=== PATIENT | male | born 1975 | race Caucasian/White ===

== ENCOUNTER 2024-02-27 11:17 | Inpatient (IN) | payer BC ==
[~2024-02-27] VITALS: Ht 180.3 cm; Wt 95.3 kg
[2024-02-27] VITALS (11 sets, daily range): BP systolic 90–126; BP diastolic 58–85
[2024-02-27] MEDS ORDERED: SODIUM CHLORIDE 0.9% 1,000 ML IV ONE ×4 (11:25→12:30)
[2024-02-27] MEDS ORDERED: DIAZEPAM 5 MG TAB PO ONE (11:25)
[2024-02-27] MEDS ORDERED: Meclizine Hydrochloride 25 MG TAB PO ONE (11:25)
[2024-02-27 11:39] LABS: BASO % 0.4 % (0.0-1.0); EOS # 0.1 10*3/uL (0.0-0.4); EOS % 1.4 % (1.0-4.0); MEAN CELL VOLUME 92.1 fl (80.0-94.0); MEAN CORPUSCULAR HGB 29.8 pg (27.0-31.0); MEAN CORPUSCULAR HGB CONC 32.3 g/dl (33.0-37.0); MEAN PLATELET VOLUME 9.3 fl (9.6-12.3); MONO # 0.6 10*3/uL (0.1-1.0); MONO % 6.8 % (3.0-9.0); NEUT # 6.4 10*3/uL (2.3-7.9); NEUT % 75.7 % (47.0-73.0); PLATELET COUNT AUTOMATED 185 10*3/uL (130-400); RED BLOOD COUNT 5.21 10*6/uL (4.50-5.90); RED CELL DISTRI WIDTH 13.2 % (0-14.5); WHITE BLOOD COUNT 8.5 10*3/uL (4.8-10.8)
[2024-02-27 12:01] LABS: BUN 19 mg/dl (9-23); CHLORIDE 106 mmol/L (98-107); POTASSIUM 3.9 mmol/L (3.4-5.1)
[2024-02-27] MEDS ORDERED: AZITHROMYCIN 250 ML IV ONE (12:50)
[2024-02-27] MEDS ORDERED: Enoxaparin Sodium 100 MG/ML SYR SC ONE (12:50)
[2024-02-27] MEDS ORDERED: Ceftriaxone Sodium 1 GM/10 ML SYR IV ONE (12:50)
[2024-02-27] MEDS ORDERED: ACETAMINOPHEN 325 MG TAB PO PRN (13:55)
[2024-02-27] MEDS ORDERED: ACETAMINOPHEN 650 MG SUPP R PRN (13:55)
[2024-02-27] MEDS ORDERED: BISACODYL 5 MG TAB PO PRN (13:55)
[2024-02-27] MEDS ORDERED: Magnesium Hydroxide 30 ML UDC PO PRN (13:55)
[2024-02-27] MEDS ORDERED: TEMAZEPAM 15 MG CAP PO PRN (13:55)
[2024-02-27] MEDS ORDERED: BISACODYL 10 MG SUPP R PRN (13:55)
[2024-02-27] MEDS ORDERED: SODIUM CHLORIDE 0.9% 100 ML BAG IV ONE (14:10)
[2024-02-27] MEDS ORDERED: IOHEXOL 350 MG/ML 100 ML VIAL IV ONE (14:10)
[2024-02-27] MEDS ORDERED: SODIUM CHLORIDE 0.9% 1,000 ML IV SCH (14:20)
[2024-02-27] MEDS ORDERED: ASPIRIN ENTERIC COATED 81 MG TAB PO SCH ×2 (14:35→15:00)
[2024-02-27] MEDS ORDERED: ATORVASTATIN CALCIUM 80 MG TAB PO SCH ×2 (14:35→15:00)
[2024-02-27 15:37] LABS: URINE AMPHETAMINES Negative (1000ng/ml); URINE BARBITURATES Negative (200ng/ml); URINE BENZODIAZEPINES Negative (200ng/ml); URINE CANNABINOIDS (THC) Positive (50ng/ml); URINE COCAINE Negative (300ng/ml); URINE METHADONE Negative (300ng/ml); URINE OPIATES Negative (300ng/ml); URINE PHENCYCLIDINE Negative (25ng/ml)
[2024-02-28] MEDS ORDERED: Enoxaparin Sodium 100 MG/ML SYR SC SCH
== END 2024-02-27 23:50 | disposition short-term general hospital (02) | DRG 871 ==
LOC: ED 11:17 → EDHOLD 13:11
PROVIDERS: Emergency Medicine; Student in an Organized Health Care Education/Training Program; ADMIT Internal Medicine; ATTEND Internal Medicine
DX: A41.9 Sepsis, unspecified organism (principal); I21.4 Non-ST elevation (NSTEMI) myocardial infarction; J69.0 Pneumonitis due to inhalation of food and vomit; J96.01 Acute respiratory failure with hypoxia; N17.0 Acute kidney failure with tubular necrosis; I26.99 Other pulmonary embolism without acute cor pulmonale; G93.40 Encephalopathy, unspecified; R65.20 Severe sepsis without septic shock; F19.90 Other psychoactive substance use, unspecified, uncomplicated; F17.290 Nicotine dependence, other tobacco product, uncomplicated